=== PATIENT | male | born 1975 | race Caucasian/White ===

== ENCOUNTER 2016-10-24 20:15 | Emergency (ER) | payer OTHER ==
[2016-10-24 20:54] VITALS: BP 137/93; PULSE 97; RESP 16; TEMP 98.1
[2016-10-24] MEDS ORDERED: PROPARACAINE 0.5% OPHTH DROPS 15 ML BTL ONE (21:19)
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
== END 2016-10-24 21:45 | disposition left against medical advice (07) ==
LOC: EC 20:15
DX: S40.012A Contusion of left shoulder, initial encounter (principal); S80.212A Abrasion, left knee, initial encounter; S80.211A Abrasion, right knee, initial encounter; H57.9 Unspecified disorder of eye and adnexa; V89.2XXA Person injured in unspecified motor-vehicle accident, traffic, initial encounter
CPT/HCPCS: 93005; 99284

== ENCOUNTER → 2016-10-25 | Outpatient (CLI) | payer OTHER ==
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
== END ==
LOC: RADXRMAIN 16:28
PROVIDERS: ATTEND Emergency Medicine
DX: S13.4XXA Sprain of ligaments of cervical spine, initial encounter (principal)
CPT/HCPCS: 72050

== ENCOUNTER 2019-02-14 15:41 | Emergency (ER) | payer BC ==
[2019-02-14 15:49] VITALS: RESP 18
[2019-02-14] MEDS ORDERED: ONDANSETRON 4 MG/2 ML VIAL IVP STA (16:08)
[2019-02-14] MEDS ORDERED: SODIUM CHLORIDE 0.9% 1,000 ML IV STA (16:08)
[2019-02-14] MEDS ORDERED: MORPHINE SULFATE 4 MG/ML SYRINGE IV STA (16:08)
[2019-02-14] MEDS ORDERED: ACETAMINOPHEN TAB 500 MG TAB PO STA (16:09)
--- NOTE | 2019-02-14 16:14 | ED ---
Abdominal Pain HPI - General Chief Complaint: Abdominal Pain Stated Complaint: ABDOMINAL PAIN X 4 DAYS Time Seen by Provider: 02/14/19 15:51 Source: patient Mode of arrival: ambulatory Limitations: no limitations - History of Present Illness Initial Comments: Patient is a 43-year-old male presenting to the emergency Department with complaints of left lower quadrant abdominal pain 3 days. Patient states the pain has been progressively increasing over the past 3 days. Patient also admits to some mild nausea. Patient states he has felt feverish over the last 3 days as well. Patient did take some Motrin approximately 3 hours prior to arrival. Patient denies any prior abdominal surgeries. Patient takes no medications. He has not had a colonoscopy. Patient denies vomiting, diarrhea, chest pain, shortness of breath, cough. Patient has no other complaints at this time. Upon arrival to ER, temperature is 101.3, pulse is 105, BP 143/81, O2 is 97%. - Related Data Previous Rx's Medication Instructions Recorded Ciprofloxacin HCl [Cipro] 500 mg PO BID 7 Days #14 tab 02/14/19 metroNIDAZOLE [Flagyl] 500 mg PO TID 7 Days #21 tab 02/14/19 Allergies Allergy/AdvReac Type Severity Reaction Status Date / Time No Known Allergies Allergy Verified 02/14/19 15:48 Review of Systems ROS Statement: Those systems with pertinent positive or pertinent negative responses have been documented in the HPI. ROS Other: All systems not noted in ROS Statement are negative. Past Medical History Past Medical History: No Reported History History of Any Multi-Drug Resistant Organisms: None Reported Past Surgical History: No Surgical Hx Reported Additional Past Surgical History / Comment(s): (L) 2nd digit surgery. Past Psychological History: No Psychological Hx Reported Smoking Status: Never smoker Past Alcohol Use History: Occasional Past Drug Use History: None Reported General Exam - General Exam Comments Initial Comments: GENERAL: Well-appearing, well-nourished and in mild distress secondary to abdominal pain. HEAD: Atraumatic, normocephalic. EYES: Pupils equal round and reactive to light, extraocular movements intact, sclera anicteric, conjunctiva are normal. ENT: TMs normal, nares patent, oropharynx clear without exudates. Moist mucous membranes. NECK: Normal range of motion, supple without lymphadenopathy or JVD. LUNGS: Breath sounds clear to auscultation bilaterally and equal. No wheezes rales or rhonchi. HEART: Regular rate and rhythm without murmurs, rubs or gallops. ABDOMEN: Patient is tender to palpation in the left lower quadrant. Patient has referred pain to the left quadrant when right quadrant is palpated. Soft, normoactive bowel sounds. No masses appreciated. : Deferred EXTREMITIES: Normal range of motion, no pitting or edema. No clubbing or cyanosis. NEUROLOGICAL: Cranial nerves II through XII grossly intact. Normal speech, normal gait. PSYCH: Normal mood, normal affect. SKIN: Warm, Dry, normal turgor, no rashes or lesions noted. Limitations: no limitations Course Vital Signs 02/14/19 02/14/19 15:46 18:22 Temperature 101.3 F H 99.1 F Pulse Rate 105 H 77 Respiratory 18 18 Rate Blood Pressure 143/81 133/70 O2 Sat by Pulse 97 99 Oximetry Medical Decision Making - Medical Decision Making Patient is a 43-year-old male presenting with left lower quadrant pain and fever 3 days. Patient has no pertinent past medical history. Patient takes no medications. On exam patient has tenderness and left lower quadrant as well as referred tenderness with palpation of the right lower quadrant into the left lower quadrant. CBC shows slight leukocytosis at 12.8. CMP is within normal limits. Lactic acid is 0.7. UA shows no signs of infection. CT of the abdomen shows sigmoid diverticulosis with focal diverticulitis in the proximal sigmoid colon. No drainable fluid collection. Patient was given fluids and Tylenol for his fever. Patient refused morphine and Zofran. Patient will be started on Cipro and Flagyl for diverticulitis. Patient is stable for discharge at this time. Is recommended to continue with Tylenol and/or Motrin for pain relief. Patient was given a Tylenol 3 starter pack. Patient is in agreement with this plan of care. Strict return parameters were discussed with the patient he verbalizes understanding. Case discussed with Dr. Rodgers. - Lab Data Result diagrams: 02/14/19 16:30 02/14/19 16:30 Lab Results 02/14/19 02/14/19 02/14/19 Range/Units 16:30 16:30 16:30 WBC 12.8 H (3.8-10.6) k/uL RBC 5.19 (4.30-5.90) m/uL Hgb 15.8 (13.0-17.5) gm/dL Hct 45.6 (39.0-53.0) % MCV 87.9 (80.0-100.0) fL MCH 30.4 (25.0-35.0) pg MCHC 34.6 (31.0-37.0) g/dL RDW 12.7 (11.5-15.5) % Plt Count 182 (150-450) k/uL Neutrophils % 81 % Lymphocytes % 8 % Monocytes % 5 % Eosinophils % 3 % Basophils % 3 % Neutrophils # 10.4 H (1.3-7.7) k/uL Lymphocytes # 1.0 (1.0-4.8) k/uL Monocytes # 0.6 (0-1.0) k/uL Eosinophils # 0.4 (0-0.7) k/uL Basophils # 0.4 H (0-0.2) k/uL Sodium 138 (137-145) mmol/L Potassium 4.3 (3.5-5.1) mmol/L Chloride 103 (98-107) mmol/L Carbon Dioxide 25 (22-30) mmol/L Anion Gap 10 mmol/L BUN 18 (9-20) mg/dL Creatinine 1.10 (0.66-1.25) mg/dL Est GFR (CKD-EPI)AfAm >90 (>60 ml/min/1.73 sqM) Est GFR (CKD-EPI)NonAf 82 (>60 ml/min/1.73 sqM) Glucose 101 H (74-99) mg/dL Plasma Lactic Acid Nahid 0.7 (0.7-2.0) mmol/L Calcium 9.5 (8.4-10.2) mg/dL Total Bilirubin 2.0 H (0.2-1.3) mg/dL AST 45 (17-59) U/L ALT 22 (21-72) U/L Alkaline Phosphatase 94 (38-126) U/L Total Protein 7.5 (6.3-8.2) g/dL Albumin 4.5 (3.5-5.0) g/dL Amylase 49 (30-110) U/L Lipase 50 (23-300) U/L Urine Color Urine Appearance (Clear) Urine pH (5.0-8.0) Ur Specific [place] (1.001-1.035) Urine Protein (Negative) Urine Glucose (UA) (Negative) Urine Ketones (Negative) Urine Blood (Negative) Urine Nitrite (Negative) Urine Bilirubin (Negative) Urine Urobilinogen (<2.0) mg/dL Ur Leukocyte Esterase (Negative) 02/14/19 Range/Units 17:05 WBC (3.8-10.6) k/uL RBC (4.30-5.90) m/uL Hgb (13.0-17.5) gm/dL Hct (39.0-53.0) % MCV (80.0-100.0) fL MCH (25.0-35.0) pg MCHC (31.0-37.0) g/dL RDW (11.5-15.5) % Plt Count (150-450) k/uL Neutrophils % % Lymphocytes % % Monocytes % % Eosinophils % % Basophils % % Neutrophils # (1.3-7.7) k/uL Lymphocytes # (1.0-4.8) k/uL Monocytes # (0-1.0) k/uL Eosinophils # (0-0.7) k/uL Basophils # (0-0.2) k/uL Sodium (137-145) mmol/L Potassium (3.5-5.1) mmol/L Chloride (98-107) mmol/L Carbon Dioxide (22-30) mmol/L Anion Gap mmol/L BUN (9-20) mg/dL Creatinine (0.66-1.25) mg/dL Est GFR (CKD-EPI)AfAm (>60 ml/min/1.73 sqM) Est GFR (CKD-EPI)NonAf (>60 ml/min/1.73 sqM) Glucose (74-99) mg/dL Plasma Lactic Acid Nahid (0.7-2.0) mmol/L Calcium (8.4-10.2) mg/dL Total Bilirubin (0.2-1.3) mg/dL AST (17-59) U/L ALT (21-72) U/L Alkaline Phosphatase (38-126) U/L Total Protein (6.3-8.2) g/dL Albumin (3.5-5.0) g/dL Amylase (30-110) U/L Lipase (23-300) U/L Urine Color Yellow Urine Appearance Clear (Clear) Urine pH 7.0 (5.0-8.0) Ur Specific [place] 1.044 H (1.001-1.035) Urine Protein Negative (Negative) Urine Glucose (UA) Negative (Negative) Urine Ketones Negative (Negative) Urine Blood Negative (Negative) Urine Nitrite Negative (Negative) Urine Bilirubin Negative (Negative) Urine Urobilinogen <2.0 (<2.0) mg/dL Ur Leukocyte Esterase Negative (Negative) Disposition Clinical Impression: Abdominal pain, Diverticulitis Disposition: HOME SELF-CARE Condition: Stable Instructions (If sedation given, give patient instructions): Diverticulitis (ED) Additional Instructions: Please return to the Emergency Department if symptoms worsen or any other concerns. Alternate between Motrin and Tylenol for pain. Take antibiotics as prescribed. Prescriptions: Ciprofloxacin HCl [Cipro] 500 mg PO BID 7 Days #14 tab metroNIDAZOLE [Flagyl] 500 mg PO TID 7 Days #21 tab Is patient prescribed a controlled substance at d/c from ED?: No Referrals: None,Stated [Primary Care Provider] - 1-2 days
[2019-02-14 16:41] LABS: Basophils # (A) 0.4 k/uL (0-0.2); Basophils % (A) 3 %; Eosinophils # (A) 0.4 k/uL (0-0.7); Eosinophils % (A) 3 %; HCT 45.6 % (39.0-53.0); HGB 15.8 gm/dL (13.0-17.5); Lymphocytes % (A) 8 %; MCH 30.4 pg (25.0-35.0); MCHC 34.6 g/dL (31.0-37.0); MCV 87.9 fL (80.0-100.0); Mean Platelet Volume 7.8; Monocytes # (A) 0.6 k/uL (0-1.0); Monocytes % (A) 5 %; Neutrophils # (A) 10.4 k/uL (1.3-7.7); Neutrophils % (A) 81 %; Platelet Count 182 k/uL (150-450); RBC 5.19 m/uL (4.30-5.90); RDW 12.7 % (11.5-15.5); WBC 12.8 k/uL (3.8-10.6)
[2019-02-14 16:52] LABS: ALT 22 U/L (21-72); AST 45 U/L (17-59); African American GFR (CKD) >90 (>60 ml/min/1.73 sqM); Albumin 4.5 g/dL (3.5-5.0); Alkaline Phosphatase 94 U/L (38-126); Amylase 49 U/L (30-110); Anion Gap 10 mmol/L; Blood Urea Nitrogen 18 mg/dL (9-20); Calcium 9.5 mg/dL (8.4-10.2); Carbon Dioxide 25 mmol/L (22-30); Chloride 103 mmol/L (98-107); Glucose 101 mg/dL (74-99); Sodium 138 mmol/L (137-145); Total Protein 7.5 g/dL (6.3-8.2)
[2019-02-14 16:53] LABS: Potassium 4.3 mmol/L (3.5-5.1)
--- NOTE | 2019-02-14 16:53 | CT ---
EXAMINATION TYPE: CT abdomen pelvis w con DATE OF EXAM: 02/14/2019 COMPARISON: None HISTORY: Left lower quadrant abdominal pain x4 days. CT DLP: 1132.5 mGycm Automated exposure control for dose reduction was used. TECHNIQUE: Helical acquisition of images was performed from the lung bases through the pelvis. CONTRAST: Performed without Oral Contrast and with IV Contrast, patient injected with 100ml mL of Isovue 300. FINDINGS: There is mild subsegmental atelectasis at the right lung base. There is no pleural effusion. There is no pericardial effusion. Liver spleen pancreas gallbladder appear normal. Bile ducts are not dilated. Stomach appears normal. There is no adrenal mass. Kidneys show satisfactory contrast opacification. There is no hydronephrosi s. There is no retroperitoneal adenopathy. Appendix is normal. There is some moderate fat stranding around the proximal sigmoid colon. There are sigmoid diverticula . There is mild wall thickening. Bladder distends smoothly. There is no inguinal hernia. There is no free fluid in the pelvis. There is no sign of free air. There is no ascites. Lumbar spine is intact. Lumbar vertebra have normal spacing and alignment. Bony pelvis is intact. IMPRESSION: THERE IS SIGMOID DIVERTICULOSIS WITH FOCAL DIVERTICULITIS PROXIMAL SIGMOID COLON. NO DRAINABLE FLUID COLLECTION.
[2019-02-14 17:20] LABS: Appearance,Urine Clear (Clear); Bilirubin,Urine Negative (Negative); Blood,Urine Negative (Negative); Color,Urine Yellow; Glucose,Urine (UA) Negative (Negative); Ketones,Urine Negative (Negative); Leukocyte Esterase,Urine Negative (Negative); Nitrite,Urine Negative (Negative); Protein,Urine Negative (Negative); Specific Gravity,Urine 1.044 (1.001-1.035); Urobilinogen,Urine <2.0 mg/dL (<2.0)
[2019-02-14] MEDS ORDERED: metroNIDAZOLE 500 MG TAB PO STA (17:48)
[2019-02-14] MEDS ORDERED: CIPROFLOXACIN HCL 500 MG TAB PO STA (17:48)
[2019-02-14] MEDS ORDERED: ACET/COD 300 MG/30 MG STARTER PACK 6 TAB BTL PO STA (17:49)
[2019-02-14 18:23] VITALS: BP 133/70; PULSE 77; TEMP 99.1
== END 2019-02-14 18:23 | disposition home or self-care (01) ==
LOC: EC 15:41
DX: K57.32 Diverticulitis of large intestine without perforation or abscess without bleeding (principal); D72.829 Elevated white blood cell count, unspecified; Z53.29 Procedure and treatment not carried out because of patient's decision for other reasons
CPT/HCPCS: 36415; 80053; 82150; 83605; 83690; 85025; 81003; 87040; 74177; 99284; 96360; Q9967

== ENCOUNTER 2020-08-17 00:08 | Emergency (ER) | payer BC ==
[2020-08-17 00:16] VITALS: BP 123/80; PULSE 101; RESP 16; TEMP 98.9
[2020-08-17] MEDS ORDERED: MORPHINE SULFATE 4 MG/ML SYRINGE IV STA (00:33)
[2020-08-17] MEDS ORDERED: SODIUM CHLORIDE 0.9% 1,000 ML IV STA ×2 (00:33)
--- NOTE | 2020-08-17 00:34 | ED ---
Abdominal Pain HPI - General Chief Complaint: Abdominal Pain Stated Complaint: LT sided groin pain Time Seen by Provider: 08/17/20 00:27 Source: patient, RN notes reviewed, old records reviewed Mode of arrival: ambulatory Limitations: no limitations - History of Present Illness Initial Comments: This is a 45-year-old male DF for evaluation patient Dese for evaluation regarding left lower quadrant abdominal pain history of diverticulitis patient coming in for evaluation regarding left lower quadrant abdominal pain, left- sided groin pain but states the pain is worsened prior history of diverticulitis. Patient is no medical the neurosurgical evaluation. Patient has otherwise no significant medical history. Pain is worsening with no fevers MD Complaint: abdominal pain, other (Left suprapubic, left sided lower quadrant abdominal pain) -: days(s) (2) Location: LLQ, suprapubic, L flank Radiation: suprapubic Migration to: suprapubic Severity: severe Severity scale (1-10): 9 Quality: cramping, stabbing Consistency: intermittent Improves With: nothing Worsens With: nothing Context: other (none, history of diverticulitis) Associated Symptoms: nausea Treatments Prior to Arrival: other (none) - Related Data Previous Rx's Medication Instructions Recorded Ciprofloxacin HCl [Cipro] 500 mg PO BID 7 Days #14 tab 02/14/19 metroNIDAZOLE [Flagyl] 500 mg PO TID 7 Days #21 tab 02/14/19 Ciprofloxacin HCl [Cipro] 500 mg PO BID 7 Days #14 tab 08/17/20 metroNIDAZOLE [Flagyl] 500 mg PO TID #21 tab 08/17/20 Allergies Allergy/AdvReac Type Severity Reaction Status Date / Time amoxicillin Allergy Rash/Hives Verified 08/17/20 00:16 Review of Systems ROS Statement: Those systems with pertinent positive or pertinent negative responses have been documented in the HPI. ROS Other: All systems not noted in ROS Statement are negative. Past Medical History Past Medical History: No Reported History History of Any Multi-Drug Resistant Organisms: None Reported Past Surgical History: No Surgical Hx Reported Additional Past Surgical History / Comment(s): (L) 2nd digit surgery. Past Psychological History: No Psychological Hx Reported Smoking Status: Never smoker Past Alcohol Use History: Occasional Past Drug Use History: None Reported General Exam Limitations: no limitations General appearance: alert, in no apparent distress Head exam: Present: atraumatic, normocephalic, normal inspection Eye exam: Present: normal appearance, PERRL, EOMI. Absent: scleral icterus, conjunctival injection, periorbital swelling ENT exam: Present: normal exam, mucous membranes moist Neck exam: Present: normal inspection. Absent: tenderness, meningismus, lymphadenopathy Respiratory exam: Present: normal lung sounds bilaterally. Absent: respiratory distress, wheezes, rales, rhonchi, stridor Cardiovascular Exam: Present: normal rhythm, tachycardia, normal heart sounds. Absent: systolic murmur, diastolic murmur, rubs, gallop, clicks GI/Abdominal exam: Present: soft, tenderness (Left lower quadrant), normal bowel sounds. Absent: distended, guarding, rebound, rigid Extremities exam: Present: normal inspection, full ROM, normal capillary refill. Absent: tenderness, pedal edema, joint swelling, calf tenderness Back exam: Present: normal inspection Neurological exam: Present: alert, oriented X3, CN II-XII intact Psychiatric exam: Present: normal affect, normal mood Skin exam: Present: warm, dry, intact, normal color. Absent: rash Course Vital Signs 08/17/20 00:13 Temperature 98.9 F Pulse Rate 101 H Respiratory 16 Rate Blood Pressure 123/80 O2 Sat by Pulse 96 Oximetry - Reevaluation(s) Reevaluation #1: Medical record is reviewed Patient no distress here in the ER is improved Spoke with patient regarding findings, questions are answered Patient feels better tolerating oral intake and can be discharged home Medical Decision Making - Medical Decision Making 45 mailed ER with history of diverticulitis coming in with pain maybe similar but is worse today. Does have recurrent diverticulitis, tolerating oral intake and can be discharged home - Lab Data Result diagrams: 08/17/20 00:47 08/17/20 00:47 Lab Results 08/17/20 08/17/20 08/17/20 Range/Units 00:47 00:47 00:47 WBC 9.5 (3.8-10.6) k/uL RBC 5.17 (4.30-5.90) m/uL Hgb 16.3 (13.0-17.5) gm/dL Hct 45.0 (39.0-53.0) % MCV 87.0 (80.0-100.0) fL MCH 31.4 (25.0-35.0) pg MCHC 36.1 (31.0-37.0) g/dL RDW 13.1 (11.5-15.5) % Plt Count 157 (150-450) k/uL MPV 8.2 Neutrophils % 70 % Lymphocytes % 17 % Monocytes % 8 % Eosinophils % 4 % Basophils % 1 % Neutrophils # 6.7 (1.3-7.7) k/uL Lymphocytes # 1.6 (1.0-4.8) k/uL Monocytes # 0.7 (0-1.0) k/uL Eosinophils # 0.4 (0-0.7) k/uL Basophils # 0.1 (0-0.2) k/uL Sodium 137 (137-145) mmol/L Potassium 4.1 (3.5-5.1) mmol/L Chloride 101 (98-107) mmol/L Carbon Dioxide 26 (22-30) mmol/L Anion Gap 10 mmol/L BUN 15 (9-20) mg/dL Creatinine 1.17 (0.66-1.25) mg/dL Est GFR (CKD-EPI)AfAm 87 (>60 ml/min/1.73 sqM) Est GFR (CKD-EPI)NonAf 75 (>60 ml/min/1.73 sqM) Glucose 109 H (74-99) mg/dL Plasma Lactic Acid Nahid 0.8 (0.7-2.0) mmol/L Calcium 9.7 (8.4-10.2) mg/dL Total Bilirubin 1.4 H (0.2-1.3) mg/dL AST 27 (17-59) U/L ALT 15 (4-49) U/L Alkaline Phosphatase 81 (38-126) U/L Total Protein 7.1 (6.3-8.2) g/dL Albumin 4.5 (3.5-5.0) g/dL Amylase 48 (30-110) U/L Lipase 53 (23-300) U/L - Radiology Data Radiology results: report reviewed (CT head and pelvis is positive for diverticulitis), image reviewed Disposition Clinical Impression: Acute diverticulitis Disposition: HOME SELF-CARE Condition: Good Instructions (If sedation given, give patient instructions): Diverticulitis (ED) Prescriptions: Ciprofloxacin HCl [Cipro] 500 mg PO BID 7 Days #14 tab metroNIDAZOLE [Flagyl] 500 mg PO TID #21 tab Is patient prescribed a controlled substance at d/c from ED?: No Referrals: Luis M Beck MD [STAFF PHYSICIAN] - 1-2 days
[2020-08-17 00:57] LABS: Basophils # (A) 0.1 k/uL (0-0.2); Basophils % (A) 1 %; Eosinophils # (A) 0.4 k/uL (0-0.7); Eosinophils % (A) 4 %; HGB 16.3 gm/dL (13.0-17.5); Lymphocytes # (A) 1.6 k/uL (1.0-4.8); Lymphocytes % (A) 17 %; MCH 31.4 pg (25.0-35.0); MCHC 36.1 g/dL (31.0-37.0); Mean Platelet Volume 8.2; Monocytes # (A) 0.7 k/uL (0-1.0); Monocytes % (A) 8 %; Neutrophils # (A) 6.7 k/uL (1.3-7.7); Neutrophils % (A) 70 %; Platelet Count 157 k/uL (150-450); RBC 5.17 m/uL (4.30-5.90); RDW 13.1 % (11.5-15.5); WBC 9.5 k/uL (3.8-10.6)
[2020-08-17 01:14] LABS: Potassium 4.1 mmol/L (3.5-5.1)
--- NOTE | 2020-08-17 01:14 | CT ---
EXAM: CT Abdomen and Pelvis With Intravenous Contrast CLINICAL HISTORY: ITS.REASON CT Reason: abdominal pain TECHNIQUE: Axial computed tomography images of the abdomen and pelvis with intravenous contrast. CTDI is 23.37 mGy and DLP is 1133.6 mGy-cm. This CT exam was performed using one or more of the following dose reduction techniques: automated exposure control, adjustment of the mA and/or kV according to patient size, and/or use of iterative reconstruction technique. COMPARISON: CT abdomen and pelvis dated 02/14/2019 FINDINGS: Lung bases: Bibasilar atelectasis. ABDOMEN: Liver: Unremarkable. Gallbladder and bile ducts: Unremarkable. Pancreas: Unremarkable. Spleen: There tiny enhancing lesions within the spleen, which are nonspecific but unchanged compared to the prior. Adrenals: Unremarkable. Kidneys and ureters: Unremarkable. Stomach and bowel: Moderate wall thickening with adjacent stranding and an inflamed diverticulum within the sigmoid colon suggesting acute diverticulitis. PELVIS: Appendix: Appendix is unremarkable. Bladder: Unremarkable. Reproductive: Unremarkable as visualized. ABDOMEN and PELVIS: Intraperitoneal space: Unremarkable. Bones/joints: No acute fracture. No dislocation. Soft tissues: Unremarkable. Vasculature: Unremarkable. Lymph nodes: Unremarkable. Other findings: Tiny fat-containing IMPRESSION: Moderate wall thickening with adjacent stranding and an inflamed diverticulum within the sigmoid colon suggesting acute diverticulitis.
[2020-08-17 01:15] LABS: Albumin 4.5 g/dL (3.5-5.0); Calcium 9.7 mg/dL (8.4-10.2); Total Bilirubin 1.4 mg/dL (0.2-1.3); Total Protein 7.1 g/dL (6.3-8.2)
[2020-08-17] MEDS ORDERED: LEVOFLOXACIN 500MG-D5W PMX 500 MG in DEXTROSE/WATER 1 100ML.BAG IVPB STA (01:22)
[2020-08-17] MEDS ORDERED: KETOROLAC 15 MG/ML 1 ML VIAL IVP STA (01:22)
[2020-08-17] MEDS ORDERED: metroNIDAZOLE-NS PMX 500 MG in SALINE 1 100ML.BAG IVPB STA (01:22)
[2020-08-17] MEDS ORDERED: ACET/COD 300 MG/30 MG STARTER PACK 6 TAB BTL PO STA (02:08)
[2020-08-17] MEDS ORDERED: ONDANSETRON 4 MG ODT STARTER PACK 2 TAB BTL PO STA (02:08)
== END 2020-08-17 03:08 | disposition home or self-care (01) ==
LOC: EC 00:08
DX: K57.32 Diverticulitis of large intestine without perforation or abscess without bleeding (principal); Z88.0 Allergy status to penicillin
CPT/HCPCS: 36415; 80053; 82150; 83605; 83690; 85025; 74177; J1956; J1885; S0119; Q9967; 96361; 96365; 96375; 99285

== ENCOUNTER → 2021-02-08 | Outpatient (CLI) | payer BC | END | disposition home or self-care (01) | LOC: LABWHC1 08:45 | PROVIDERS: ATTEND Surgery | DX: Z11.59 Encounter for screening for other viral diseases (principal) ==

== ENCOUNTER 2021-02-16 07:07 | Day surgery (SDC) | payer BC ==
[2021-02-14 10:57] VITALS: BMI 29.0
[2021-02-16 07:35] VITALS: RESP 16; TEMP 97.7
[2021-02-16] MEDS: LACTATED RINGERS 1,000 ML IV SCH ×2 (07:42→08:00)
--- NOTE | 2021-02-16 08:06 | P.HPIHPCON ---
History of Present Illness H&P Date: 02/16/21 45-year-old male presents today for colonoscopy. In August and September of this year, patient did have concern for diverticulitis. He was treated with antibiotics at that time. He states that since that time his pain has resolved and he has had no further attacks. He states he did have an attack 3 years ago as well. He has never had a colonoscopy. He denies any blood in his stool. Consent for Procedure: I have explained the operation/procedure to the patient, including the risks, benefits, side effects, alternative therapies (including not receiving the proposed treatment or service), the likelihood of the patient achieving his/her goals, and potential recuperation problems for the procedure/sedation/analgesia, as well as any blood products, if indicated. I also explained to the patient the risks, benefits and side effects of the alternatives, as well as the risks related to not receiving the proposed procedure, care, treatment, or services. - Review of Systems All systems: negative Past Medical History Past Medical History: No Reported History Additional Past Medical History / Comment(s): HX DIVERTICULITIS WITH RECENT FLARE UP History of Any Multi-Drug Resistant Organisms: None Reported Past Surgical History: Orthopedic Surgery Additional Past Surgical History / Comment(s): (L) 2nd digit surgery. VASECTOMY Past Anesthesia/Blood Transfusion Reactions: No Reported Reaction Smoking Status: Never smoker - Past Family History Father Family Medical History: Cancer Medications and Allergies Home Medications Medication Instructions Recorded Confirmed Type No Known Home Medications 02/14/21 02/16/21 History Allergies Allergy/AdvReac Type Severity Reaction Status Date / Time amoxicillin Allergy Rash/Hives Verified 02/16/21 07:31 Surgical - Exam Osteopathic Statement: *. No significant issues noted on an osteopathic struc tural exam other than those noted in the History and Physical/Consult. Vital Signs Temp Pulse Resp BP Pulse Ox 97.7 F 86 16 165/105 97 02/16/21 07:34 02/16/21 07:34 02/16/21 07:34 02/16/21 07:34 02/16/21 07:34 - General well nourished, no distress - Eyes normal ocular movement - Neck trachea midline - Respiratory normal respiratory effort - Abdomen Abdomen: soft, non tender Assessment and Plan Plan: Plan is for colonoscopy. Further recommendations after procedure. Risks, benefits and alternatives were provided to the patient and consent was given prior to procedure.
--- NOTE | 2021-02-16 08:18 | P.PCN ---
Date of Procedure: 02/16/21 Preoperative Diagnosis: History of diverticulitis Postoperative Diagnosis: Diverticulosis Procedure(s) Performed: Colonoscopy Anesthesia: MAC Surgeon: Estefani Álvarez Pathology: none sent Condition: stable Disposition: same day Indications for Procedure: 45-year-old male with history of multiple episodes of diverticulitis. Presents today for colonoscopy. Risks, benefits and alternatives were provided. Further recommendations to be made after procedure. Operative Findings: Mild amount of diverticulosis in the sigmoid colon Description of Procedure: The patient was brought to the endoscopy suite and placed in left lateral decubitus position and adequate sedation was achieved using conscious sedation. A digital rectal exam was performed and mild internal hemorrhoids were palpated. An endoscope was then placed in the rectum and advanced to the cecum as identified by landmarks including the appendiceal orifice and the ileocecal valve. The prep was good. The colonoscope was then slowly withdrawn, examining for any mucosal abnormalities. The cecum, ascending, transverse, descending and sigmoid colon were visualized adequately. No obvious polyps were noted throughout the colon. No obvious neoplastic lesions were noted. There is mild evidence of diverticulosis. Retroflexion was performed in the rectum and internal hemorrhoids were visible. Excess air was removed, the colonoscope withdrawn and the procedure terminated. The patient was then transferred to the recovery unit in stable condition. Repeat colonoscopy should be performed in 8 years for screening.
[2021-02-16] MEDS ORDERED: PROPOFOL 10 MG/ML 20 ML VIAL IV ONE (08:22)
[2021-02-16 08:38] VITALS: BP 133/78; PULSE 72
== END 2021-02-16 09:45 | disposition home or self-care (01) ==
LOC: ORWHC2ENDO 07:07
PROVIDERS: ATTEND Surgery
DX: K57.30 Diverticulosis of large intestine without perforation or abscess without bleeding (principal)
CPT/HCPCS: 45378; J2704

== ENCOUNTER 2022-12-21 14:36 | Emergency (ER) | payer BC ==
[2022-12-21 14:43] VITALS: TEMP 100.8
--- NOTE | 2022-12-21 15:45 | XR ---
EXAMINATION TYPE: XR knee complete RT DATE OF EXAM: 12/21/2022 COMPARISON: NONE HISTORY: 47-year-old male fall 3 weeks ago, redness and swelling TECHNIQUE: 3 views FINDINGS: Marked prepatellar soft tissue swelling. If mechanism appears intact. No significant knee j oint effusion. No acute fracture, subluxation, or dislocation seen. IMPRESSION: Marked prepatellar soft tissue swelling representing soft tissue contusion, hematoma, or prepatellar bursitis. No underlying acute osseous abnormality seen.
[2022-12-21 15:59] LABS: Basophils % (A) 0 %; Eosinophils # (A) 0.3 k/uL (0-0.7); Eosinophils % (A) 2 %; HGB 14.9 gm/dL (13.0-17.5); Lymphocytes % (A) 7 %; MCH 32.2 pg (25.0-35.0); MCHC 36.5 g/dL (31.0-37.0); MCV 88.4 fL (80.0-100.0); Mean Platelet Volume 8.2; Monocytes # (A) 0.7 k/uL (0-1.0); Monocytes % (A) 5 %; Neutrophils # (A) 13.1 k/uL (1.3-7.7); Neutrophils % (A) 86 %; Platelet Count 215 k/uL (150-450); RBC 4.64 m/uL (4.30-5.90); RDW 12.3 % (11.5-15.5); WBC 15.2 k/uL (3.8-10.6)
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
[2022-12-21 17:07] VITALS: BP 138/98; PULSE 100; RESP 20
== END 2022-12-21 17:07 | disposition home or self-care (01) ==
LOC: EC 14:36
DX: M70.41 Prepatellar bursitis, right knee (principal); Z88.0 Allergy status to penicillin
CPT/HCPCS: 36415; 85025; 86140; 99283; 99284

== ENCOUNTER → 2024-07-07 | Outpatient (CLI) | payer BC ==
--- NOTE | 2024-07-07 12:37 | FL ---
EXAMINATION TYPE: FL barium swallow DATE OF EXAM: 07/07/2024 11:05 AM COMPARISON: None CLINICAL INDICATION:Male, 49 years old with history of R13.19 DYSPHAGIA, UNSPECIFIED; PH, TECHNIQUE: The procedure was explained and patient history elicited. All patient questions were ans wered prior to start of procedure. Multiple spot fluoroscopic images of the esophagus were obtained a fter the oral ingestion of effervescent crystals and liquid barium as the contrast agent. Fluoroscopic time:23 sec Fluoroscopic images:0 Radiographs taken: 80 DAP: 1437.97 mGym2 FINDINGS: The esophagus demonstrates normal primary and secondary peristalsis. Few scattered Tertiary contracti ons are seen within the distal esophagus. There is also small amount of residual contrast in the esop hagus. The esophageal mucosa is smooth without evidence of focal stricture, ulceration, or abnormal o utpouching. No gastroesophageal reflux disease was identified IMPRESSION: Mild Esophageal dysmotility with liquid. [facility], , 07/07/2024 12:35 PM
== END | disposition home or self-care (01) ==
LOC: RADFLMAIN 10:16
PROVIDERS: ATTEND Otolaryngology
DX: K22.4 Dyskinesia of esophagus (principal); R13.10 Dysphagia, unspecified
CPT/HCPCS: 74220

== ENCOUNTER 2024-08-27 12:31 | Day surgery (SDC) | payer BC ==
[2024-08-25 15:43] VITALS: BMI 29.5
[~2024-08-27 12:31] MED LIST: LIDOCAINE 1% (10MG/ML) FOR IV START INTRADERMA PRN
[2024-08-27 13:19] VITALS: TEMP 98
[2024-08-27] MEDS: LACTATED RINGERS 1,000 ML IV SCH (13:25)
[2024-08-27] MEDS: IV FLUID CONTINUATION 1,000 ML IV ONE (13:25)
[2024-08-27] MEDS ORDERED: PROPOFOL 10 MG/ML 20 ML VIAL IV ONE (14:31)
--- NOTE | 2024-08-27 14:43 | P.PCN ---
Date of Procedure: 08/27/24 Procedure(s) Performed: BRIEF HISTORY: Patient is a 49-year-old, pleasant, white male scheduled for an upper endoscopy with possible dilation as a part of evaluation of intermittent dysphagia to solids for the last 6 to 7 years duration. Lately his symptoms have been progressively getting worse.. PROCEDURE PERFORMED: Esophagogastroduodenoscopy with biopsy and dilation. PREOPERATIVE DIAGNOSIS: Intermittent dysphagia to solids of 6 to 7 years duration. IV sedation per anesthesia. PROCEDURE: After informed consent was obtained, the patient was brought into the endoscopy unit. IV sedation was administered by Anesthesia under continuous monitoring. Initially the Olympus GIF-140 video endoscope was inserted into the mouth. Esophagus intubated without any difficulty. It was gradually advanced into the stomach and duodenum and carefully examined. The bulb and the second part of the duodenum appeared normal. The scope at this time was withdrawn to the stomach, adequately insufflated with air, and upon careful examination, mucosa of the antrum, body, cardia and the fundus appeared normal. The scope was then withdrawn into the esophagus. Small hiatal hernia noted. The GE junction was located at 39 cm from the incisors. There was a distal esophageal stricture that was dilated using 10 to 12 mm TTS balloon for 60 seconds. The longitudinal ridges with thickened esophageal folds and multiple mucosal rings suspicious for eosinophilic esophagitis and multiple biopsies were done from mid and distal esophagus. Also there were a linear erosions in the distal esophagus consistent with LA grade B reflux esophagitis. The rest of the esophagus appeared normal. the patient tolerated the procedure well. IMPRESSION: 1. Distal esophageal stricture status post balloon dilation using 10 to 12 mm TTS balloon. 2. Thickened distal esophageal folds with multiple mucosal rings and longitud inal ridges all suspicious for eosinophilic esophagitis status post multiple biopsies 3. Small hiatal hernia 4. Linear erosions of the distal esophagus consistent with LA grade B reflux esophagitis. RECOMMENDATIONS: The findings of this examination were discussed with the patient as well as his family. He was advised to be on clear liquids for 2 hours. Follow-up with the biopsy results. Start him on omeprazole 20 mg twice daily. Follow-up in the office in 2 weeks..
[2024-08-27 15:04] VITALS: BP 142/88; PULSE 78; RESP 18
== END 2024-08-27 15:25 | disposition home or self-care (01) ==
LOC: ORWHC2ENDO 12:31
PROVIDERS: ATTEND Internal Medicine Gastroenterology
DX: K21.00 Gastro-esophageal reflux disease with esophagitis, without bleeding (principal); K44.9 Diaphragmatic hernia without obstruction or gangrene; I10 Essential (primary) hypertension; F17.200 Nicotine dependence, unspecified, uncomplicated; Z88.0 Allergy status to penicillin; Z79.899 Other long term (current) drug therapy
CPT/HCPCS: 88305; 43239; 43249; J2704; C1726